=== PATIENT | female | born 1990 | race Caucasian/White ===

== ENCOUNTER 2016-06-10 10:55 | Emergency (ER) | payer OTHER ==
[~2016-06-10] VITALS: Ht 165.1 cm; Wt 92.2 kg
[2016-06-10 10:59] VITALS: BP 133/85
[2016-06-10 13:01] LABS: HEMATOCRIT 41.9 % (36.0-46.0); MCH 28.6 PG (29.0-34.0); MCHC 32.5 G/DL (30.0-36.0); MCV 88.2 FL (83-99); MEAN PLAT.VOLUME 10.6 uM^3 (9.5-12.4); PLATELET COUNT 317 K/uL (156-360); RBC DIS.WIDTH-CV 13.2 % (11.8-14.6); RBC DIS.WIDTH-SD 43.4 % (39-53); RED BLOOD COUNT 4.75 M/uL (3.80-5.20); WHITE BLOOD COUNT 9.7 K/uL (4.1-10.2)
[2016-06-10 13:16] LABS: CHLORIDE 108 mEq/L (99-109); SODIUM 140 mEq/L (136-147)
[2016-06-10 13:18] LABS: GLUCOSE 88 mg/dL (70-99)
[2016-06-10 13:19] LABS: ANION GAP 10 MEQ/L (2-14)
[2016-06-10 13:22] LABS: GFR ESTIMATE (CALCULATED) > 59 mL/min/; UREA NITROGEN (BUN) 6 mg/dL (9-23)
[2016-06-10 13:32] LABS: INTERNAL CONTROL VALID? YES; MONOSPOT (MONONUCLEOSIS SEROL) NEGATIVE
[2016-06-10] MEDS ORDERED: ZYRTEC10 M2 PO (14:10)
[2016-06-10] MEDS ORDERED: FLONASE16 G1 BOTH NARES (14:10)
== END 2016-06-10 14:22 | disposition home or self-care (01) ==
LOC: EME 10:55
PROVIDERS: Nurse Practitioner Family
DX: J02.8 Acute pharyngitis due to other specified organisms (principal); J30.9 Allergic rhinitis, unspecified; Z88.0 Allergy status to penicillin; Z88.1 Allergy status to other antibiotic agents; Z88.2 Allergy status to sulfonamides
CPT/HCPCS: 80048; 85027; 86308; 87651 90; 99281; 99284